=== PATIENT | female | born 1940 | race Caucasian/White ===

== ENCOUNTER → 2017-08-25 | Outpatient (CLI) | payer MEDICARE, MEDICAID ==
[~2017-08-25] MED LIST: AMLODIPINE BESYL5 MG PO; AMLODIPINE5 MG PO; ASPIR-TRIN325 MG PO; ASPIRIN81 M1 PO; ATENOLOL25 MG PO; AUGMENTIN 875875 MG PO; AVPAK AZITHROM250 M1 PO; B12,B-12,B 12500 MC1 PO; BACTRIM DS 8001 TA1 PO; CEFUROXIME AXE250 MG PO; CIPRO500 MG PO; CIPROFLOXACIN500 MG PO; DOK PLUS 50 MG-1 TAB PO; GLIPIZIDE10 M2 PO; GLIPIZIDE5 MG PO; HYDROCODONE BIT1 T11 PO; JANUVIA50 MG PO; LASIX20 MG PO; LEVOFLOXACIN500 MG PO; LISINOPRIL AND1 TA2 PO; LISINOPRIL5 MG PO; LOVASTATIN20 MG PO; LOVASTATIN40 MG PO; MACROBID100 M1 PO; METFORMIN500 MG PO; MIRALAX POWDER17 G1 PO; MIRAPEX PO; MIRAPEX0.125 MG PO; MIRAPEX1 MG PO; NORCO 325 MG-101 TAB PO; OXYCODONE HCL5 MG PO; PREDNISONE10 MG PO; TENORMIN25 MG PO; TRAMADOL50 MG PO; ULTRAM50 MG PO; VICODIN 5/500 505 MG PO; VISION VITAMIN1 EACH PO; ZESTRIL,PRINIVIL5 MG PO; [UNRECOGNIZED DRUG - REMARK]
--- NOTE | ~2017-08-25 | SLPPN ---
[place], [place] MALLET AND DIE CUTTER PROGRESS NOTE NAME: ELINOR VERAS UNIT #: [id number] ROOM: DOCTOR: DARCY SUAZO MD,RUPERTO Speech Language Pathology Treatment Note Page 1 1 of Patient Name: ELINOR VERAS Date: 08/25/2017 10:27 AM : 1940 SOC Date: 08/25/2017 [facility] Provider #: [id number] Treating Clinician: MILY Blake-MALLET AND DIE CUTTER Referring Physician: RUPERTO SUAZO Onset Date Description Code Primary Diagnosis: 08/22/2017 A0000 NO DIAGNOSIS SENT TO THE [facility] INTERFACE Time In: 09:00 AM Time Out: 10:00 AM [employer] Interventions and CPT Codes Consisted of: CPT Code Modifiers Minutes Units MOTION FLUOROSCOPY/SWALLOW 25024 60 1 Total Minutes: 60 Total Timed Minutes: 0 Total Untimed Minutes: 60 Total Units: 1 Total Timed Units: 0 Total Untimed Units: 1 08/25/2017 10:31:36 AM REYNA Blake Date/Time State License #: [id number] CM:[place] 103 IS THERAPY [facility]
--- NOTE | ~2017-08-25 | SLPIE ---
[place], [place] DOPER OPERATOR INITIAL EVALUATION NAME: ELINOR VERAS UNIT #: [id number] ROOM: DOCTOR: RUPERTO MILNER FACP, MD Speech Language Pathology Initial Evaluation Page 1 1 of Patient Name: ELINOR VERAS Date: 08/25/2017 10:26 AM : 1940 SOC Date: 08/25/2017 Provider: [facility] Provider #: [id number] Treating Clinician: MILY Blake-DUNCAN Referring Physician: RUPERTO SUAZO Patient Information Address: [address] [place] [address] Physician: RUPERTO SUAZO Physician #: City, [facility], Zip: [place], [place] [address] Occupation: Unknown # of Approved Visits: 0 Gender: Female Medicaid #: [id number] Resident Services Manager: MICHEAL VERAS Medicare #: [id number] Rehabilitation Information / History Onset Date Code Description Primary Diagnosis: 08/22/2017 A0000 NO DIAGNOSIS SENT TO THE [facility] INTERFACE Subjective Comments: Initial evaluation created to initiate the electronic medical record. Please see [employer] for details. Rehabilitation Information / History Clinical Findings Functional Goals Functional Limitation Reporting Swallowing G8996 - Swallowing functional limitation, current status at therapy episode outset and at reporting intervals Current Status: CJ - At least 20 percent but less than 40 percent impaired, limited or restricted G8997 - Swallowing functional limitation, projected goal status, at therapy episode outset, at reporting intervals, and at discharge or to end reporting Goal Status: CJ - At least 20 percent but less than 40 percent impaired, limited or restricted G8998 - Swallowing functional limitation, discharge status, at discharge from therapy or to end reporting Discharge Status: CJ - At least 20 percent but less than 40 percent impaired, limited or restricted 08/25/2017 10:27:35 AM MILY Blake-DUNCAN Date/Time [place], [place] DOPER OPERATOR INITIAL EVALUATION NAME: ELINOR VERAS UNIT #: [id number] ROOM: DOCTOR: RUPERTO MILNER FACP, MD [facility] License #: [id number] CM:SLPIE 1031 1031 IS THERAPY [facility]
--- NOTE | ~2017-08-25 | SLPPOC ---
[place], [place] FIELD CHECKER PLAN OF CARE NAME: ELINOR VERAS UNIT #: [id number] ROOM: DOCTOR: RUPERTO MILNER FACP, MD Speech Language Pathology Plan of Care Page 1 1 (Initial Evaluation) of Patient Name: ELINOR VERAS Date: 08/25/2017 10:26 AM : 1940 SOC Date: 08/25/2017 [facility]: [facility] Provider #: [id number] Treating Clinician: MILY Blake-FIELD CHECKER Referring Physician: RUPERTO SUAZO Medicare #: [id number] Visits From SOC: Medicaid #: [id number] Onset Date Description Code Primary Diagnosis: 08/22/2017 A0000 NO DIAGNOSIS SENT TO THE [facility] INTERFACE Subjective Comments: Initial evaluation created to initiate the electronic medical record. Please see [employer] for details. Initial Level Goals Functional Limitation Reporting Swallowing G8996 - Swallowing functional limitation, current status at therapy episode outset and at reporting intervals Current Status: CJ - At least 20 percent but less than 40 percent impaired, limited or restricted G8997 - Swallowing functional limitation, projected goal status, at therapy episode outset, at reporting intervals, and at discharge or to end reporting Goal Status: CJ - At least 20 percent but less than 40 percent impaired, limited or restricted G8998 - Swallowing functional limitation, discharge status, at discharge from therapy or to end reporting Discharge Status: CJ - At least 20 percent but less than 40 percent impaired, limited or restricted 08/25/2017 10:27:35 AM RUPERTO SUAZO Date/Time MILY Blake-DUNCAN Date I certify the need for these services furnished under this plan of treatment while under my care. State License #: [id number] CM:SLPPOC 30 30 IS THERAPY [facility]
--- NOTE | ~2017-08-25 | PROC NOTE ---
[place], [place] PROCEDURE NOTE NAME: ELINOR VERAS [facility] #: [id number] UNIT #: [id number] ROOM: DOCTOR: ROBERTGUNNAR BIRTHDATE: [birth year] DOS: 08/25/2017 ORDERING PHYSICIAN: Dr. Buckner. RADIOLOGIST: Dr. Verdugo. BACKGROUND INFORMATION: The patient, a 77-year-old female was seen for modified barium swallow. This test was ordered due to frequent cough, which increases at mealtime. The patient was alert, cooperative and able to provide case history but slow in general in speech and in movement. She reported medical history significant for AK, hypertension, DM, and uterine cancer. She receives a regular diet and nectar thick liquids. Respiratory status was within normal limits. Oral peripheral examination revealed presence of natural teeth with several back teeth missing. Lingual and labial skills were intact in terms of strength and range of motion. Movements were slow in general. Volitional swallow was delayed. Volitional cough was weak. METHODS AND MATERIALS USED FOR THE EXAM: The patient was positioned in the lateral plane and the exam was viewed under fluoroscopy. The patient was presented with a variety of consistencies to assess swallowing skills including applesauce mixed with barium presented in half teaspoon amounts, barium-coated banana, cookie and sandwich given in bite size pieces and nectar thick and thin barium taken by cup. The patient held the cup and swallowed in single and consecutive sip size amounts. ORAL PHASE: The patient achieved adequate labial seal around cup and spoon with no anterior loss. Bolus formation was adequate. Mastication of solids was slow due to oral skills and limited dentition. Oral transit was mild to moderately increased. Piecemeal swallow was also observed with solids. Tongue to palate contact was within normal limits. Tongue retraction was within normal limits. Velar functioning was within normal limits. PHARYNGEAL PHASE: Unremarkable. ESOPHAGEAL PHASE: This phase of the swallow was not formally assessed during this exam. IMPRESSIONS AND RECOMMENDATIONS: Based upon assessment results, this 77-year-old patient presents with a mild to moderate oral dysphagia characterized by slow mastication, piecemeal swallow and delayed oral transit. It is recommended that she receive a soft diet and thin liquids. Safe swallow strategies to implement at mealtime include upright positioning and small bites and sips. Follow up therapy at the assisted is recommended to ensure safety with diet change. Results and recommendations were shared with the patient and she verbalized understanding. A written copy of results and recommendations were provided for education of assisted staff. Thank you very much for this referral. Should you have any questions regarding this patient, please contact the speech pathologist at [phone]. [place], [place] PROCEDURE NOTE NAME: ELINOR VERAS Lou UNIT #: [id number] ROOM: DOCTOR: GUNNAR JONES BIRTHDATE: [birth year] GUNNAR JONES CM:PROCNOTE:PROCEDURE NOTE 1025 2233 GUNNAR JONES
== END | disposition home or self-care (01) ==
LOC: RAD/SH 02:12
DX: R13.10 Dysphagia, unspecified (principal)

== ENCOUNTER 2017-12-20 08:27 | Emergency (ER) | payer MEDICARE ==
[~2017-12-20] VITALS: Wt 68.0 kg
[2017-12-20 08:28] VITALS: BP 115/47
[2017-12-20] MEDS ORDERED: ASPIRIN CHEWABL81 MG PO (08:45)
[2017-12-20] MEDS ORDERED: SINEMET 10-1001 EACH PO (08:46)
[2017-12-20] MEDS ORDERED: CLARITIN10 MG PO (08:46)
[2017-12-20] MEDS ORDERED: CYMBALTA30 MG PO (08:47)
[2017-12-20] MEDS ORDERED: [UNRECOGNIZED DRUG - OTHER] T (08:47)
[2017-12-20] MEDS ORDERED: Hydralazine Hyd25 MG PO (08:48)
[2017-12-20] MEDS ORDERED: LANTUS SOL100 UNIT/1 SC (08:49)
[2017-12-20] MEDS ORDERED: LOSARTAN POTASS50 M1 PO (08:50)
[2017-12-20] MEDS ORDERED: MOM30 M1 PO (08:51)
[2017-12-20] MEDS ORDERED: MIRALAX POWDER17 G1 PO (08:51)
[2017-12-20] MEDS ORDERED: NOVOLOG100 UNIT/1 SQ (08:52)
[2017-12-20] MEDS ORDERED: NYSTATIN1 EAC5 MC (08:52)
[2017-12-20] MEDS ORDERED: PLAVIX75 M1 PO (08:53)
[2017-12-20] MEDS ORDERED: Percocet 325 MG1 TAB PO (08:53)
[2017-12-20] MEDS ORDERED: ROCALTROL0.5 MC1 PO (08:54)
[2017-12-20] MEDS ORDERED: PRAVACHOL40 MG PO (08:54)
[2017-12-20] MEDS ORDERED: PRESERVISION A1 EACH PO (08:54)
[2017-12-20] MEDS ORDERED: TRICOR145 M1 PO (08:55)
[2017-12-20] MEDS ORDERED: SELSUN BLUE MO207 ML T (08:55)
[2017-12-20] MEDS ORDERED: TYLENOL325 M3 PO (08:56)
[2017-12-20] MEDS ORDERED: VITAMIN D5000 UNI1 PO (08:57)
== END 2017-12-20 10:05 | disposition home or self-care (01) ==
LOC: ED 08:27
DX: S01.01XA Laceration without foreign body of scalp, initial encounter (principal); E11.22 Type 2 diabetes mellitus with diabetic chronic kidney disease; I12.9 Hypertensive chronic kidney disease with stage 1 through stage 4 chronic kidney disease, or unspecified chronic kidney disease; N18.4 Chronic kidney disease, stage 4 (severe); N17.9 Acute kidney failure, unspecified; Z88.1 Allergy status to other antibiotic agents; Z91.040 Latex allergy status; Z88.8 Allergy status to other drugs, medicaments and biological substances; Z79.82 Long term (current) use of aspirin; Z79.4 Long term (current) use of insulin; Z79.899 Other long term (current) drug therapy; Z90.710 Acquired absence of both cervix and uterus; Z90.89 Acquired absence of other organs; W19.XXXA Unspecified fall, initial encounter; Y93.89 Activity, other specified; Y92.89 Other specified places as the place of occurrence of the external cause; Y99.8 Other external cause status

== ENCOUNTER 2018-02-26 18:15 | Emergency (ER) | payer MEDICARE ==
[~2018-02-26] VITALS: Ht 157.4 cm; Wt 113.4 kg
[~2018-02-26 18:15] MED LIST changes: +ASPIRIN CHEWABL81 MG PO; +CLARITIN10 MG PO; +CYMBALTA30 MG PO; +Hydralazine Hyd25 MG PO; +LANTUS SOL100 UNIT/1 SC; +LOSARTAN POTASS50 M1 PO; +MOM30 M1 PO; +NOVOLOG100 UNIT/1 SQ; +NYSTATIN1 EAC5 MC; +PLAVIX75 M1 PO; +PRAVACHOL40 MG PO; +PRESERVISION A1 EACH PO; +Percocet 325 MG1 TAB PO; +ROCALTROL0.5 MC1 PO; +SELSUN BLUE MO207 ML T; +SINEMET 10-1001 EACH PO; +TRICOR145 M1 PO; +TYLENOL325 M3 PO; +VITAMIN D5000 UNI1 PO; +[UNRECOGNIZED DRUG - OTHER] T
[2018-02-26 19:35] LABS: ALBUMIN 2.9 gm/dl (3.1-4.5); CREATININE 1.87 mg/dL (0.55-1.02); TOTAL PROTEIN 7.1 gm/dL (6.4-8.2)
[2018-02-26 20:07] LABS: BILIRUBIN NEGATIVE (NEGATIVE); BLOOD TRACE-INTACT (NEGATIVE); CLARITY SL CLOUDY (CLEAR); COLOR YELLOW (YELLOW); GLUCOSE TRACE (NEGATIVE); KETONE NEGATIVE (NEGATIVE); LEUKO ESTERASE 2+ (NEGATIVE); NITRITE NEGATIVE (NEGATIVE); SPECIFIC GRAVITY >= 1.030 (1.005-1.030); UROBILINOGEN 0.2 E.U./dl (0.2-1.0)
[2018-02-26 20:10] LABS: HEMATOCRIT 32.5 % (37.0-47.0); HEMOGLOBIN 10.6 g/dl (12.0-16.0); MEAN CELL VOLUME 98.8 fl (81.0-99.0); MEAN CORPUSCULAR HGB 32.2 pg (27.0-31.0); MEAN CORPUSCULAR HGB CONC 32.6 g/dl (33.0-37.0); MEAN PLATELET VOLUME 10.2 fl (9.6-12.3); PLATELET COUNT AUTOMATED 218 10*3/uL (130-400); RED BLOOD COUNT 3.29 10*6/uL (4.10-5.10); RED CELL DISTRI WIDTH 13.1 % (0-14.5); WHITE BLOOD COUNT 3.9 10*3/uL (4.8-10.8)
[2018-02-26 20:13] LABS: BACTERIA 4+; WBC TNTC wbc/hpf (0-5)
[2018-02-26 21:32] LABS: BASOPHILS 1 % (0-1); PLATELET SUFFICIENCY NORMAL (NORMAL); POLYCHROMASIA SLIGHT; TOTAL CELLS COUNTED 100 #CELLS
[2018-02-26] MEDS ORDERED: MACRODANTIN100 M1 PO (21:48)
[2018-02-26 22:34] VITALS: BP 147/50
== END 2018-02-26 22:51 | disposition home or self-care (01) ==
LOC: ED 18:15
PROVIDERS: Nurse Practitioner Family
DX: S63.501A Unspecified sprain of right wrist, initial encounter (principal); N39.0 Urinary tract infection, site not specified; E11.22 Type 2 diabetes mellitus with diabetic chronic kidney disease; I12.9 Hypertensive chronic kidney disease with stage 1 through stage 4 chronic kidney disease, or unspecified chronic kidney disease; N18.4 Chronic kidney disease, stage 4 (severe); E78.5 Hyperlipidemia, unspecified; Z90.710 Acquired absence of both cervix and uterus; W18.2XXA Fall in (into) shower or empty bathtub, initial encounter; Y93.89 Activity, other specified; Y92.89 Other specified places as the place of occurrence of the external cause; Y99.8 Other external cause status

== ENCOUNTER 2018-03-06 17:14 | Inpatient (IN) | payer MEDICARE ==
[~2018-03-06] VITALS: Ht 162.5 cm; Wt 108.5 kg
--- NOTE | ~2018-03-06 | EKG ---
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
[~2018-03-06 17:14] MED LIST changes: +MACRODANTIN100 M1 PO; +NYSTATIN CREAM15 GM T; +PURE & GENTLE 115 ML OP
[2018-03-06 17:16] VITALS: BP 183/57
[2018-03-06 17:36] LABS: BILIRUBIN NEGATIVE (NEGATIVE); BLOOD TRACE-INTACT (NEGATIVE); CLARITY CLEAR (CLEAR); COLOR YELLOW (YELLOW); GLUCOSE NEGATIVE (NEGATIVE); KETONE NEGATIVE (NEGATIVE); LEUKO ESTERASE 1+ (NEGATIVE); NITRITE NEGATIVE (NEGATIVE); SPECIFIC GRAVITY 1.025 (1.005-1.030); UROBILINOGEN 0.2 E.U./dl (0.2-1.0)
[2018-03-06 17:58] LABS: BACTERIA 2+; CALCIUM OXALATE CRYSTALS 1+; EPITHELIAL CELLS 21-30; RBC 0-2 rbc/hpf (0-2)
[2018-03-06 18:06] LABS: BASO % 0.1 % (0.0-1.0); EOS % 0.2 % (1.0-4.0); HEMATOCRIT 31.5 % (37.0-47.0); HEMOGLOBIN 10.2 g/dl (12.0-16.0); LYMPH # 1.3 10*3/uL (1.3-4.4); LYMPH % 13.1 % (27.0-41.0); MEAN CELL VOLUME 97.2 fl (81.0-99.0); MEAN CORPUSCULAR HGB 31.5 pg (27.0-31.0); MEAN CORPUSCULAR HGB CONC 32.4 g/dl (33.0-37.0); MEAN PLATELET VOLUME 9.6 fl (9.6-12.3); MONO # 0.8 10*3/uL (0.1-1.0); MONO % 8.1 % (3.0-9.0); NEUT # 7.9 10*3/uL (2.3-7.9); NEUT % 77.8 % (47.0-73.0); PLATELET COUNT AUTOMATED 229 10*3/uL (130-400); RED BLOOD COUNT 3.24 10*6/uL (4.10-5.10); RED CELL DISTRI WIDTH 13.1 % (0-14.5); WHITE BLOOD COUNT 10.1 10*3/uL (4.8-10.8)
[2018-03-06 18:21] LABS: ALBUMIN 2.6 gm/dl (3.1-4.5); ALKALINE PHOSPHATASE 108 U/L (45-117); BUN 44 mg/dl (7-24); CHLORIDE 110 mmol/L (98-107); CREATININE 1.89 mg/dL (0.55-1.02); LIPASE 188 U/L (73-393); POTASSIUM 4.7 mmol/L (3.5-5.1); SGOT/AST 15 IU/L (3-35); SGPT/ALT 9 U/L (12-78); SODIUM 138 mmol/L (136-145); TOTAL PROTEIN 7.3 gm/dL (6.4-8.2)
[2018-03-06 18:22] LABS: TROPONIN I < 0.015 ng/ml (<0.045)
[2018-03-06 19:25] VITALS: BP 172/60
[2018-03-06] MEDS ORDERED: [UNRECOGNIZED DRUG - OTHER] T (19:45)
[2018-03-06] MEDS ORDERED: GEMFIBROZIL600 MG PO (19:46)
[2018-03-06] MEDS ORDERED: DOXYCYCLINE100 M3 PO (19:46)
[2018-03-06] MEDS ORDERED: IMODIUM A-D2 M2 PO (19:48)
[2018-03-06 20:00] VITALS: BP 151/55
[2018-03-07] VITALS: BP 107/68; BP 159/65
[2018-03-07 06:37] LABS: HEMATOCRIT 32.3 % (37.0-47.0); HEMOGLOBIN 10.2 g/dl (12.0-16.0); MEAN CELL VOLUME 98.2 fl (81.0-99.0); MEAN CORPUSCULAR HGB CONC 31.6 g/dl (33.0-37.0); MEAN PLATELET VOLUME 9.7 fl (9.6-12.3); PLATELET COUNT AUTOMATED 213 10*3/uL (130-400); RED BLOOD COUNT 3.29 10*6/uL (4.10-5.10); RED CELL DISTRI WIDTH 12.8 % (0-14.5); WHITE BLOOD COUNT 8.3 10*3/uL (4.8-10.8)
[2018-03-07 07:07] LABS: ALBUMIN 2.2 gm/dl (3.1-4.5); CREATININE 1.53 mg/dL (0.55-1.02); POTASSIUM 4.8 mmol/L (3.5-5.1)
[2018-03-07 07:33] LABS: BASOPHILS 1 % (0-1); PLATELET SUFFICIENCY NORMAL (NORMAL); POLYCHROMASIA SLIGHT; TOTAL CELLS COUNTED 100 #CELLS
[2018-03-07 08:00] VITALS: BP 136/84
[2018-03-07 12:00] VITALS: BP 172/80
[2018-03-07 16:00] VITALS: BP 140/84; BP 174/82
[2018-03-07 20:00] VITALS: BP 152/66
[2018-03-08] VITALS: BP 160/80
[2018-03-08 08:00] VITALS: BP 156/82
[2018-03-08 12:00] VITALS: BP 143/64
[2018-03-08] MEDS ORDERED: Ipratropium Brom3 ML NEB (15:04)
[2018-03-08] MEDS ORDERED: DOXYCYCLINE100 M3 PO (15:04)
[2018-03-08] MEDS ORDERED: MONUROL3 G1 PO (15:04)
[2018-03-08] MEDS ORDERED: Percocet 325 MG1 TAB PO (15:04)
[2018-03-08 16:00] VITALS: BP 197/83
== END 2018-03-08 17:07 | DRG 871 ==
LOC: ED 17:14 → EDHOLD 19:02 → 5E 19:26
PROVIDERS: Family Medicine; Internal Medicine
DX: A41.9 Sepsis, unspecified organism (principal); G93.41 Metabolic encephalopathy; E43 Unspecified severe protein-calorie malnutrition; J15.6 Pneumonia due to other Gram-negative bacteria; I13.0 Hypertensive heart and chronic kidney disease with heart failure and stage 1 through stage 4 chronic kidney disease, or unspecified chronic kidney disease; I50.32 Chronic diastolic (congestive) heart failure; N30.01 Acute cystitis with hematuria; Z68.41 Body mass index [BMI] 40.0-44.9, adult; D64.9 Anemia, unspecified; R80.9 Proteinuria, unspecified; M50.30 Other cervical disc degeneration, unspecified cervical region; N20.0 Calculus of kidney; K80.20 Calculus of gallbladder without cholecystitis without obstruction; B96.20 Unspecified Escherichia coli [E. coli] as the cause of diseases classified elsewhere; K57.30 Diverticulosis of large intestine without perforation or abscess without bleeding; K76.0 Fatty (change of) liver, not elsewhere classified; R16.0 Hepatomegaly, not elsewhere classified; K44.9 Diaphragmatic hernia without obstruction or gangrene; E11.22 Type 2 diabetes mellitus with diabetic chronic kidney disease; Z96.653 Presence of artificial knee joint, bilateral; E78.5 Hyperlipidemia, unspecified; Z88.1 Allergy status to other antibiotic agents; Z88.8 Allergy status to other drugs, medicaments and biological substances; Z91.040 Latex allergy status; Z79.82 Long term (current) use of aspirin; Z79.899 Other long term (current) drug therapy; Z87.440 Personal history of urinary (tract) infections; Z90.710 Acquired absence of both cervix and uterus; Z83.3 Family history of diabetes mellitus; Z80.52 Family history of malignant neoplasm of bladder

== ENCOUNTER 2018-03-29 09:21 | Emergency (ER) | payer MEDICARE ==
[~2018-03-29] VITALS: Wt 108.9 kg
[~2018-03-29 09:21] MED LIST changes: +DOXYCYCLINE100 M3 PO; +GEMFIBROZIL600 MG PO; +IMODIUM A-D2 M2 PO; +Ipratropium Brom3 ML NEB; +MONUROL3 G1 PO; +[UNRECOGNIZED DRUG - OTHER] T
[2018-03-29 10:40] VITALS: BP 178/78
== END 2018-03-29 11:31 ==
LOC: ED 09:21
DX: S63.501A Unspecified sprain of right wrist, initial encounter (principal); S00.83XA Contusion of other part of head, initial encounter; Z88.1 Allergy status to other antibiotic agents; Z88.6 Allergy status to analgesic agent; Z91.040 Latex allergy status; Z79.899 Other long term (current) drug therapy; Z79.82 Long term (current) use of aspirin; Z87.891 Personal history of nicotine dependence; W07.XXXA Fall from chair, initial encounter; Y93.89 Activity, other specified; Y92.89 Other specified places as the place of occurrence of the external cause; Y99.8 Other external cause status

== ENCOUNTER 2018-04-20 19:47 | Emergency (ER) | payer MEDICARE ==
[~2018-04-20] VITALS: Ht 162.5 cm; Wt 107.0 kg
[2018-04-20] MEDS ORDERED: CLINDAMYCIN HC300 MG PO (22:13)
[2018-04-20 22:34] VITALS: BP 130/47
== END 2018-04-20 23:09 | disposition other institution (70) ==
LOC: ED 19:47
DX: M79.81 Nontraumatic hematoma of soft tissue (principal); L08.9 Local infection of the skin and subcutaneous tissue, unspecified; Z88.1 Allergy status to other antibiotic agents; Z88.6 Allergy status to analgesic agent; Z91.040 Latex allergy status; Z79.2 Long term (current) use of antibiotics; Z79.899 Other long term (current) drug therapy; Z79.82 Long term (current) use of aspirin; Z79.4 Long term (current) use of insulin; Z90.710 Acquired absence of both cervix and uterus

== ENCOUNTER → 2018-05-07 | Outpatient (CLI) | payer MEDICARE ==
[~2018-05-07] MED LIST changes: +CLINDAMYCIN HC300 MG PO
== END | disposition home or self-care (01) ==
LOC: WOUNDCARE 03:08
DX: S00.03XA Contusion of scalp, initial encounter (principal); S60.411A Abrasion of left index finger, initial encounter; E11.22 Type 2 diabetes mellitus with diabetic chronic kidney disease; I13.0 Hypertensive heart and chronic kidney disease with heart failure and stage 1 through stage 4 chronic kidney disease, or unspecified chronic kidney disease; N18.9 Chronic kidney disease, unspecified; I50.30 Unspecified diastolic (congestive) heart failure; E78.5 Hyperlipidemia, unspecified; G20 Parkinson's disease; G89.29 Other chronic pain; F03.90 Unspecified dementia, unspecified severity, without behavioral disturbance, psychotic disturbance, mood disturbance, and anxiety; Z79.4 Long term (current) use of insulin; Z96.653 Presence of artificial knee joint, bilateral; Z90.710 Acquired absence of both cervix and uterus; Z79.01 Long term (current) use of anticoagulants; Z87.891 Personal history of nicotine dependence; W01.0XXA Fall on same level from slipping, tripping and stumbling without subsequent striking against object, initial encounter; Y93.89 Activity, other specified; Y92.89 Other specified places as the place of occurrence of the external cause; Y99.8 Other external cause status

== ENCOUNTER 2018-05-16 19:49 | Emergency (ER) | payer MEDICARE ==
[~2018-05-16] VITALS: Ht 162.5 cm; Wt 99.8 kg
[2018-05-16 19:51] VITALS: BP 170/51
== END 2018-05-16 22:42 ==
LOC: ED 19:49
DX: S00.03XA Contusion of scalp, initial encounter (principal); E11.22 Type 2 diabetes mellitus with diabetic chronic kidney disease; I13.0 Hypertensive heart and chronic kidney disease with heart failure and stage 1 through stage 4 chronic kidney disease, or unspecified chronic kidney disease; N18.4 Chronic kidney disease, stage 4 (severe); I50.30 Unspecified diastolic (congestive) heart failure; E11.40 Type 2 diabetes mellitus with diabetic neuropathy, unspecified; E11.51 Type 2 diabetes mellitus with diabetic peripheral angiopathy without gangrene; G89.29 Other chronic pain; E78.5 Hyperlipidemia, unspecified; E66.9 Obesity, unspecified; Z88.1 Allergy status to other antibiotic agents; Z88.8 Allergy status to other drugs, medicaments and biological substances; Z91.040 Latex allergy status; Z79.2 Long term (current) use of antibiotics; Z79.899 Other long term (current) drug therapy; Z79.82 Long term (current) use of aspirin; Z79.4 Long term (current) use of insulin; Z90.710 Acquired absence of both cervix and uterus; W05.0XXA Fall from non-moving wheelchair, initial encounter; Y93.89 Activity, other specified; Y92.129 Unspecified place in nursing home as the place of occurrence of the external cause; Y99.8 Other external cause status

== ENCOUNTER 2018-09-05 19:14 | Emergency (ER) | payer MEDICARE ==
[~2018-09-05] VITALS: Ht 162.5 cm; Wt 104.3 kg
[2018-09-05 19:18] VITALS: BP 153/60
== END 2018-09-05 21:27 | disposition other institution (70) ==
LOC: ED 19:14
DX: S01.111A Laceration without foreign body of right eyelid and periocular area, initial encounter (principal); Z87.891 Personal history of nicotine dependence; Z79.899 Other long term (current) drug therapy; Z79.82 Long term (current) use of aspirin; Z88.1 Allergy status to other antibiotic agents; Z88.6 Allergy status to analgesic agent; Z91.040 Latex allergy status; W05.0XXA Fall from non-moving wheelchair, initial encounter; Y93.89 Activity, other specified; Y92.128 Other place in nursing home as the place of occurrence of the external cause; Y99.8 Other external cause status

== ENCOUNTER 2018-11-22 21:32 | Emergency (ER) | payer MEDICARE ==
[~2018-11-22] VITALS: Wt 103.0 kg
[2018-11-22 21:35] VITALS: BP 145/58
== END 2018-11-22 22:39 | disposition home or self-care (01) ==
LOC: ED 21:32
DX: H53.143 Visual discomfort, bilateral (principal); G20 Parkinson's disease; G89.29 Other chronic pain; I13.0 Hypertensive heart and chronic kidney disease with heart failure and stage 1 through stage 4 chronic kidney disease, or unspecified chronic kidney disease; E11.22 Type 2 diabetes mellitus with diabetic chronic kidney disease; N18.4 Chronic kidney disease, stage 4 (severe); I50.30 Unspecified diastolic (congestive) heart failure; E78.5 Hyperlipidemia, unspecified; Z87.891 Personal history of nicotine dependence; Z86.69 Personal history of other diseases of the nervous system and sense organs; Z88.1 Allergy status to other antibiotic agents; Z91.040 Latex allergy status; Z79.2 Long term (current) use of antibiotics; Z79.899 Other long term (current) drug therapy; Z79.82 Long term (current) use of aspirin; Z79.4 Long term (current) use of insulin

== ENCOUNTER 2018-11-25 21:40 | Emergency (ER) | payer MEDICARE ==
[~2018-11-25] VITALS: Ht 157.4 cm; Wt 102.6 kg
[2018-11-25 22:41] LABS: BASO % 0.5 % (0.0-1.0); EOS # 0.1 10*3/uL (0.0-0.4); EOS % 2.4 % (1.0-4.0); HEMATOCRIT 31.5 % (37.0-47.0); HEMOGLOBIN 10.2 g/dl (12.0-16.0); LYMPH # 1.1 10*3/uL (1.3-4.4); LYMPH % 19.3 % (27.0-41.0); MEAN CELL VOLUME 101.3 fl (81.0-99.0); MEAN CORPUSCULAR HGB 32.8 pg (27.0-31.0); MEAN CORPUSCULAR HGB CONC 32.4 g/dl (33.0-37.0); MEAN PLATELET VOLUME 9.2 fl (9.6-12.3); MONO # 0.6 10*3/uL (0.1-1.0); MONO % 10.6 % (3.0-9.0); NEUT # 3.6 10*3/uL (2.3-7.9); NEUT % 66.3 % (47.0-73.0); PLATELET COUNT AUTOMATED 218 10*3/uL (130-400); RED BLOOD COUNT 3.11 10*6/uL (4.10-5.10); RED CELL DISTRI WIDTH 13.4 % (0-14.5); WHITE BLOOD COUNT 5.5 10*3/uL (4.8-10.8)
[2018-11-25 22:41] LABS: BILIRUBIN NEGATIVE (NEGATIVE); BLOOD NEGATIVE (NEGATIVE); CLARITY SL CLOUDY (CLEAR); COLOR YELLOW (YELLOW); GLUCOSE NEGATIVE (NEGATIVE); KETONE NEGATIVE (NEGATIVE); LEUKO ESTERASE 3+ (NEGATIVE); NITRITE POSITIVE (NEGATIVE); SPECIFIC GRAVITY <= 1.005 (1.005-1.030); UROBILINOGEN 0.2 E.U./dl (0.2-1.0)
[2018-11-25 22:55] LABS: ALBUMIN 3.1 gm/dl (3.1-4.5); TOTAL PROTEIN 6.6 gm/dL (6.4-8.2)
[2018-11-25 23:18] LABS: BACTERIA 3+; WBC TNTC wbc/hpf (0-5)
[2018-11-26] MEDS ORDERED: MACROBID100 M1 PO (01:38)
[2018-11-26 02:20] VITALS: BP 165/72
== END 2018-11-26 02:15 ==
LOC: ED 21:40
PROVIDERS: Nurse Practitioner Family
DX: N39.0 Urinary tract infection, site not specified (principal); E11.22 Type 2 diabetes mellitus with diabetic chronic kidney disease; I13.0 Hypertensive heart and chronic kidney disease with heart failure and stage 1 through stage 4 chronic kidney disease, or unspecified chronic kidney disease; N18.4 Chronic kidney disease, stage 4 (severe); I50.30 Unspecified diastolic (congestive) heart failure; Z88.1 Allergy status to other antibiotic agents; Z88.6 Allergy status to analgesic agent; Z91.040 Latex allergy status; Z79.899 Other long term (current) drug therapy; Z79.82 Long term (current) use of aspirin; Z79.4 Long term (current) use of insulin

== ENCOUNTER 2019-02-03 13:44 | Emergency (ER) | payer MEDICARE ==
[~2019-02-03] VITALS: Ht 165.1 cm; Wt 90.7 kg
[2019-02-03 14:30] LABS: BASO % 0.3 % (0.0-1.0); EOS # 0.1 10*3/uL (0.0-0.4); EOS % 0.8 % (1.0-4.0); HEMATOCRIT 31.7 % (37.0-47.0); HEMOGLOBIN 9.8 g/dl (12.0-16.0); LYMPH # 0.8 10*3/uL (1.3-4.4); LYMPH % 7.2 % (27.0-41.0); MEAN CORPUSCULAR HGB 31.2 pg (27.0-31.0); MEAN CORPUSCULAR HGB CONC 30.9 g/dl (33.0-37.0); MEAN PLATELET VOLUME 8.9 fl (9.6-12.3); MONO # 0.9 10*3/uL (0.1-1.0); MONO % 8.7 % (3.0-9.0); NEUT # 8.9 10*3/uL (2.3-7.9); NEUT % 82.4 % (47.0-73.0); PLATELET COUNT AUTOMATED 273 10*3/uL (130-400); RED BLOOD COUNT 3.14 10*6/uL (4.10-5.10); RED CELL DISTRI WIDTH 12.4 % (0-14.5); WHITE BLOOD COUNT 10.8 10*3/uL (4.8-10.8)
[2019-02-03 14:50] LABS: ALBUMIN 2.7 gm/dl (3.1-4.5); ALKALINE PHOSPHATASE 122 U/L (45-117); BUN 53 mg/dl (7-24); CHLORIDE 105 mmol/L (98-107); CREATININE 1.76 mg/dL (0.55-1.02); POTASSIUM 4.2 mmol/L (3.5-5.1); SGOT/AST 9 IU/L (3-35); SODIUM 138 mmol/L (136-145); TOTAL PROTEIN 7.3 gm/dL (6.4-8.2)
[2019-02-03 14:51] LABS: SGPT/ALT < 6 U/L (12-78)
[2019-02-03 15:06] LABS: BILIRUBIN NEGATIVE (NEGATIVE); BLOOD NEGATIVE (NEGATIVE); CLARITY SL CLOUDY (CLEAR); COLOR YELLOW (YELLOW); GLUCOSE NEGATIVE (NEGATIVE); KETONE NEGATIVE (NEGATIVE); LEUKO ESTERASE 2+ (NEGATIVE); NITRITE POSITIVE (NEGATIVE); SPECIFIC GRAVITY 1.025 (1.005-1.030); UROBILINOGEN 0.2 E.U./dl (0.2-1.0)
[2019-02-03 15:13] LABS: BACTERIA 4+; EPITHELIAL CELLS 0-2; MUCOUS TRACE; RBC 0-2 rbc/hpf (0-2); WBC 31-40 wbc/hpf (0-5)
[2019-02-03] MEDS ORDERED: SEPTDS PO (17:05)
[2019-02-03 17:25] VITALS: BP 138/58
== END 2019-02-03 17:30 | disposition home or self-care (01) ==
LOC: ED 13:44
PROVIDERS: Emergency Medicine
DX: N39.0 Urinary tract infection, site not specified (principal); G30.9 Alzheimer's disease, unspecified; G89.29 Other chronic pain; E78.5 Hyperlipidemia, unspecified; E11.22 Type 2 diabetes mellitus with diabetic chronic kidney disease; I13.0 Hypertensive heart and chronic kidney disease with heart failure and stage 1 through stage 4 chronic kidney disease, or unspecified chronic kidney disease; N18.4 Chronic kidney disease, stage 4 (severe); I50.30 Unspecified diastolic (congestive) heart failure; M81.0 Age-related osteoporosis without current pathological fracture; E66.9 Obesity, unspecified; Z88.1 Allergy status to other antibiotic agents; Z88.8 Allergy status to other drugs, medicaments and biological substances; Z91.040 Latex allergy status; Z79.2 Long term (current) use of antibiotics; Z79.899 Other long term (current) drug therapy; Z79.82 Long term (current) use of aspirin; Z79.4 Long term (current) use of insulin; Z87.442 Personal history of urinary calculi; Z87.891 Personal history of nicotine dependence

== ENCOUNTER 2019-03-25 13:08 | Inpatient (IN) | payer MEDICARE ==
[~2019-03-25] VITALS: Ht 162.5 cm; Wt 92.6 kg
[~2019-03-25 13:08] MED LIST changes: +POTASSIUM CHLO20 ME3 PO; +SEPTDS PO
[2019-03-25 14:17] LABS: BASO % 0.5 % (0.0-1.0); EOS # 0.1 10*3/uL (0.0-0.4); EOS % 1.8 % (1.0-4.0); HEMATOCRIT 35.4 % (37.0-47.0); HEMOGLOBIN 10.8 g/dl (12.0-16.0); LYMPH # 0.7 10*3/uL (1.3-4.4); LYMPH % 10.7 % (27.0-41.0); MEAN CORPUSCULAR HGB 31.1 pg (27.0-31.0); MEAN CORPUSCULAR HGB CONC 30.5 g/dl (33.0-37.0); MEAN PLATELET VOLUME 9.4 fl (9.6-12.3); MONO # 0.5 10*3/uL (0.1-1.0); MONO % 7.5 % (3.0-9.0); NEUT % 78.9 % (47.0-73.0); PLATELET COUNT AUTOMATED 265 10*3/uL (130-400); RED BLOOD COUNT 3.47 10*6/uL (4.10-5.10); RED CELL DISTRI WIDTH 13.2 % (0-14.5); WHITE BLOOD COUNT 6.3 10*3/uL (4.8-10.8)
[2019-03-25 14:28] LABS: ACT PARTIAL THROMBO TIME 27.7 SECONDS (20.0-32.1); INTERNATIONAL NORM RATIO 0.9 (2.0-3.5)
[2019-03-25 14:29] VITALS: BP 141/50
[2019-03-25 14:50] LABS: ALBUMIN 3.3 gm/dl (3.1-4.5); ALKALINE PHOSPHATASE 120 U/L (45-117); BUN 47 mg/dl (7-24); CHLORIDE 106 mmol/L (98-107); CREATININE 1.66 mg/dL (0.55-1.02); LIPASE 158 U/L (73-393); POTASSIUM 4.3 mmol/L (3.5-5.1); SGOT/AST 9 IU/L (3-35); SODIUM 141 mmol/L (136-145); TOTAL PROTEIN 7.2 gm/dL (6.4-8.2)
[2019-03-25 14:56] LABS: SGPT/ALT < 6 U/L (12-78); TROPONIN I < 0.015 ng/ml (<0.045)
[2019-03-25 16:48] VITALS: BP 148/61
[2019-03-25 18:42] VITALS: BP 155/54
[2019-03-25 19:30] VITALS: BP 155/84
--- NOTE | 2019-03-25 19:30 | NUR ---
A 79, admitted to EDHOLD, under the services of GIOVANNA Romero DO with a diagnosis of ASPIRATION, PNEUMONITIS. Chief complaint is SOB. Patient arrived via bed from ER. Monitor applied. Initial assessment completed. Vital signs taken and recorded. GIOVANNA ROMERO DO notified of admission to the unit. Orders received. See assessment for past medical history, medications and allergies. Patient and/or family oriented to unit.PT CURRENTLY IN ED HOLD AWAITING A BED TO MS FLOOR. visitation policy reviewed. Clothing/patient valuable form completed. EMEKA BOSTON
[2019-03-25] MEDS ORDERED: SINEMET 25-1001 EACH PO ×2 (19:57→19:58)
[2019-03-25] MEDS ORDERED: VITAMIN B-121000 MC2 PO (19:58)
[2019-03-25] MEDS ORDERED: CYMBALTA60 MG PO (19:59)
[2019-03-25] MEDS ORDERED: Ipratropium Brom3 ML INH (20:00)
[2019-03-25] MEDS ORDERED: [UNRECOGNIZED DRUG - OTHER] T (20:00)
[2019-03-25] MEDS ORDERED: FEROSUL325 MG PO (20:01)
[2019-03-25] MEDS ORDERED: HYDR25T PO (20:03)
[2019-03-25] MEDS ORDERED: NYSTATIN1 EAC3 T (20:06)
[2019-03-25] MEDS ORDERED: PRESERVISION A1 EAC1 PO (20:08)
[2019-03-25] MEDS ORDERED: VITAMIN D5000 UNIT PO (20:09)
[2019-03-25] MEDS ORDERED: ZOFRAN4 MG PO (20:10)
[2019-03-25] MEDS ORDERED: MIRALAX17 GM PO (20:11)
[2019-03-25 20:14] VITALS: BP 167/89
[2019-03-26 00:21] VITALS: BP 162/78
[2019-03-26 03:00] VITALS: BP 150/60
--- NOTE | 2019-03-26 03:23 | NUR ---
PATIENT IS RESTING AT THIS TIME. NO DISTRESS NOTED.
[2019-03-26 06:06] VITALS: BP 158/62
--- NOTE | 2019-03-26 06:08 | NUR ---
COMPLETE BED CHANGE FOR THE PATIENT. PATIENT TOLERATED WELL. VITALS STABLE
--- NOTE | 2019-03-26 06:55 | NUR ---
Time: 654 A 79 year old female admitted to 5E under services of GIOVANNA ROMERO DO. Pt. arrived via from ED HOLD ER. Chief complaint: .SHORTNESS OF BREATH. PT TRANSFERRRED VIA BED TO ROOM 509. EMEKA BOSTON
--- NOTE | 2019-03-26 07:34 | NUR ---
ELINOR VERAS Lou [id number] Please refer to the physician's history and physical for past medical history, comorbid conditions, and allergies. Diagnosis: ASPIRATION PNEUMONITIS Lai Score: 17,AT RISK WOUND DESCRIPTIONS: Patient has red blanchable area noted to sacrum at time of assessment. No open areas noted at time of assessment to sacrum. Bilateral heels are red and blanchable at time of assessment. No open areas noted at time of assessment to bilateral heels. Red satelitte musty areas noted to bilateral breasts, and bilateral groins at time of assessment. No drainage noted at time of assessment. Surface the patient is resting on: Isoflex SKIN PREVENTION RECOMMENDATION: 1. Pressure redistribution support surface as appropriate 2. Elevate heels 3. Remove boots/TEDS every shift and reapply 4. Head of bed 30 degrees as tolerated 5. Assess nutrition and hydration 6. Manage moisture 7. Avoid the use of containment devices while in bed 8. Use absorptive products on surfaces limit layers of linens on bed 9. Turn and reposition every 1-2 hours in bed and every 1 hour in chair as tolerated 10. Weight shifts every 15 minutes while up in chair 11. Offloading with pillows or device to keep heels elevated off bed 12. Monitor skin at least every shift 13. Inspect under medical devices twice a day WOUND TREATMENT RECOMMENDATIONS: Cleanse bilateral breasts and groins with soap and water and apply nystatin powder every 8 hours. Cleanse sacrum with soap and water and apply hydraguard every shift and prn for soiling for prevention. Heel raiser pro boots to bilateral feet while in bed. Wheelchair cushion when oob.
--- NOTE | 2019-03-26 09:00 | NUR ---
case management visits with patient, she is skilled nursing care at [facility] and will return when medically stable, case management will follow
[2019-03-26 09:13] LABS: BASO % 0.2 % (0.0-1.0); HEMATOCRIT 37.9 % (37.0-47.0); HEMOGLOBIN 11.7 g/dl (12.0-16.0); LYMPH # 0.8 10*3/uL (1.3-4.4); LYMPH % 9.1 % (27.0-41.0); MEAN CELL VOLUME 100.8 fl (81.0-99.0); MEAN CORPUSCULAR HGB 31.1 pg (27.0-31.0); MEAN CORPUSCULAR HGB CONC 30.9 g/dl (33.0-37.0); MEAN PLATELET VOLUME 9.4 fl (9.6-12.3); MONO # 0.3 10*3/uL (0.1-1.0); MONO % 3.5 % (3.0-9.0); NEUT # 7.6 10*3/uL (2.3-7.9); NEUT % 86.4 % (47.0-73.0); PLATELET COUNT AUTOMATED 306 10*3/uL (130-400); RED BLOOD COUNT 3.76 10*6/uL (4.10-5.10); WHITE BLOOD COUNT 8.8 10*3/uL (4.8-10.8)
[2019-03-26 09:34] LABS: ALBUMIN 3.4 gm/dl (3.1-4.5); CREATININE 1.56 mg/dL (0.55-1.02); PHOSPHOROUS 3.3 mg/dL (2.5-4.9); POTASSIUM 4.2 mmol/L (3.5-5.1)
[2019-03-26 09:35] LABS: TOTAL PROTEIN 7.7 gm/dL (6.4-8.2)
--- NOTE | 2019-03-26 10:09 | NUR ---
Speech Therapy Patient referred for bedside swallowing evaluation due to concerns for possible aspiration. Per chart review, patient currently resides at [facility] where staff reported concerns for possible aspiration. Within the nursing facility, patient is on thickened liquid, however patient signed a waiver to eat and drink regular food. However, after eating, patient was observed "groaning and coughing." Patient's medical history includes Parkinson's Disease, DM, and HTN. Upon arrival, patient with minimal verbal communication. She spoke with quiet, raspy voice, with short utterances that were at times unintelligibible. She was able to follow verbal commands paired with visual cues and models. Oral [facility] exam revealed lingual, labilal, and buccal skills WFL. Patient able to elicit volitional swallow which was assessed to be delayed, in addition to a weak and apparently non-productive volitional cough. Patient assessed with variety of items this date. Delayed initiation of pharyngeal swallow was observed across all consistencies. No reflexive overt s/s of penetration/aspration observed, however delayed coughing and audible breathing which was not baseline was observed following trials of tsp of water and clincian-controlled sips of nectar like liquid. No penetration/aspiration observed during pureed and regular consistency. Mildly increased mastication time observed during solid food trials, with mild lingual residue remaining. Patient presents with moderate oropharyngeal dysphagia characterized by overt s/s of penetration/aspiration occurring following trials of thin and nectar-like liquids, in addition to delayed initiation of pharyngeal swallow with mild impairments in oral skills. Patient is recommended mechanical soft diet with honey-like liquids. A modified barium swallow study is additionally recommended to further assess the anatomy and physiology of oropharyngeal swallow function. During preivous MBS dated August of 2017, patient was recommended a soft diet with thin liquids. There appears to be severe decline in oropharyngeal swallow function since most recent MBS. Follow up speech therapy is recommended to endsure safety and tolerance of recommended diet throughout a meal. Results and recommendations were shared with patient and patient's nurse. Thank you for your consultation. Carline Mathis MA CCC-[employer] MEDIA SPECIALIST
[2019-03-26 12:00] VITALS: BP 155/60
--- NOTE | 2019-03-26 12:27 | NUR ---
NOTIFIED DR VELIZ OF SPEECH EVAL RECCOMMENDATIONS. ORDERS RECIEVED.
--- NOTE | 2019-03-26 12:27 | NUR ---
Patient is LTC at [facility]. When medically stable she can return. -AISHWARYA Aldrich
[2019-03-26 16:00] VITALS: BP 173/76
--- NOTE | 2019-03-26 17:30 | NUR ---
NOTIFIED DR PUGH'S ANSWERING SERVICE OF NEW CONSULT FOR SOB AND ASPIRATION.
[2019-03-26 20:00] VITALS: BP 138/66
--- NOTE | 2019-03-26 20:59 | NUR ---
PATIENT RESTING IN BED WITH EASY AND REGULAR RESPERS ON ROOM AIR. PATIENT IS NONVERBAL, AND NO S/S OF DISTRESS NOTED AT THIS TIME. BEDSIDE GLUCOSE 179. BED IS LOW, LOCKED, ALARMED, AND CALL LIGHT IS WITHIN REACH, WILL CONTINUE TO MONITOR. SEE SHIFT ASSESSMENT.
[2019-03-27] VITALS: BP 147/60
[2019-03-27 08:00] VITALS: BP 147/67
[2019-03-27 08:38] LABS: BASO # 0.1 10*3/uL (0.0-0.1); BASO % 0.6 % (0.0-1.0); EOS # 0.1 10*3/uL (0.0-0.4); EOS % 0.7 % (1.0-4.0); HEMOGLOBIN 13.3 g/dl (12.0-16.0); LYMPH # 1.9 10*3/uL (1.3-4.4); LYMPH % 22.4 % (27.0-41.0); MEAN CELL VOLUME 98.9 fl (81.0-99.0); MEAN CORPUSCULAR HGB 30.6 pg (27.0-31.0); MEAN CORPUSCULAR HGB CONC 30.9 g/dl (33.0-37.0); MEAN PLATELET VOLUME 9.4 fl (9.6-12.3); MONO # 0.8 10*3/uL (0.1-1.0); MONO % 9.1 % (3.0-9.0); NEUT # 5.6 10*3/uL (2.3-7.9); NEUT % 66.5 % (47.0-73.0); PLATELET COUNT AUTOMATED 256 10*3/uL (130-400); RED BLOOD COUNT 4.35 10*6/uL (4.10-5.10); RED CELL DISTRI WIDTH 13.2 % (0-14.5); WHITE BLOOD COUNT 8.4 10*3/uL (4.8-10.8)
[2019-03-27 08:46] LABS: ALBUMIN 3.3 gm/dl (3.1-4.5); ALKALINE PHOSPHATASE 105 U/L (45-117); BUN 50 mg/dl (7-24); CHLORIDE 111 mmol/L (98-107); CREATININE 1.62 mg/dL (0.55-1.02); POTASSIUM 4.1 mmol/L (3.5-5.1); SGOT/AST 10 IU/L (3-35); SODIUM 144 mmol/L (136-145); TOTAL PROTEIN 7.2 gm/dL (6.4-8.2)
[2019-03-27 08:47] LABS: SGPT/ALT < 6 U/L (12-78)
[2019-03-27 16:00] VITALS: BP 131/50
[2019-03-27 20:00] VITALS: BP 160/51
[2019-03-28] VITALS: BP 154/60
[2019-03-28 07:08] LABS: CREATININE 1.66 mg/dL (0.55-1.02); POTASSIUM 4.2 mmol/L (3.5-5.1)
[2019-03-28 08:00] VITALS: BP 161/50
--- NOTE | 2019-03-28 08:36 | NUR ---
IN TO SEE PATIENT.
--- NOTE | 2019-03-28 10:26 | NUR ---
IN TO SEE PATIENT.
[2019-03-28] MEDS ORDERED: MUCINEX ER600 MG PO (11:08)
[2019-03-28] MEDS ORDERED: PREDNISONE10 MG PO (11:13)
[2019-03-28 12:00] VITALS: BP 126/59
--- NOTE | 2019-03-28 12:34 | NUR ---
ID CALLED REGARDING CRP LEVEL. AWAITING RETURN PHONE CALL.
--- NOTE | 2019-03-28 12:40 | NUR ---
NOTIFIED REGARDING MOST RECENT CRP LEVEL. NO NEW ORDERS. OKAY TO PROCEED WITH DISCHARGE.
--- NOTE | 2019-03-28 14:38 | NUR ---
AMBULANCE HERE TO TRANSPORT PATIENT BACK TO [facility].
--- NOTE | 2019-03-28 14:55 | NUR ---
REPORT GIVEN TO NURSE AT [facility].
== END 2019-03-28 14:55 | disposition other institution (70) | DRG 178 ==
LOC: ED 13:08 → 5E 16:22 → EDHOLD 16:22 → 5E 03-26 06:57
PROVIDERS: Emergency Medicine; Internal Medicine; Student in an Organized Health Care Education/Training Program; ADMIT Internal Medicine
DX: J69.0 Pneumonitis due to inhalation of food and vomit (principal); I13.0 Hypertensive heart and chronic kidney disease with heart failure and stage 1 through stage 4 chronic kidney disease, or unspecified chronic kidney disease; E44.1 Mild protein-calorie malnutrition; N18.4 Chronic kidney disease, stage 4 (severe); I50.32 Chronic diastolic (congestive) heart failure; E78.5 Hyperlipidemia, unspecified; E11.22 Type 2 diabetes mellitus with diabetic chronic kidney disease; E11.65 Type 2 diabetes mellitus with hyperglycemia; D53.9 Nutritional anemia, unspecified; E66.9 Obesity, unspecified; E87.8 Other disorders of electrolyte and fluid balance, not elsewhere classified; E86.0 Dehydration; G89.29 Other chronic pain; Z96.653 Presence of artificial knee joint, bilateral; G20 Parkinson's disease; Z68.35 Body mass index [BMI] 35.0-35.9, adult; Z79.4 Long term (current) use of insulin; Z90.710 Acquired absence of both cervix and uterus; Z87.891 Personal history of nicotine dependence; Z80.52 Family history of malignant neoplasm of bladder; Z83.3 Family history of diabetes mellitus; Z88.8 Allergy status to other drugs, medicaments and biological substances; Z88.6 Allergy status to analgesic agent; Z88.1 Allergy status to other antibiotic agents; Z91.040 Latex allergy status; Z79.82 Long term (current) use of aspirin; Z79.899 Other long term (current) drug therapy

== ENCOUNTER 2019-06-27 16:12 | Emergency (ER) | payer MEDICARE ==
[~2019-06-27] VITALS: Wt 94.3 kg
[~2019-06-27 16:12] MED LIST changes: +CYMBALTA60 MG PO; +FEROSUL325 MG PO; +HYDR25T PO; +Ipratropium Brom3 ML INH; +MIRALAX17 GM PO; +MUCINEX ER600 MG PO; +NYSTATIN1 EAC3 T; +PRESERVISION A1 EAC1 PO; +SINEMET 25-1001 EACH PO; +VITAMIN B-121000 MC2 PO; +VITAMIN D5000 UNIT PO; +ZOFRAN4 MG PO
[2019-06-27 17:51] VITALS: BP 165/72
== END 2019-06-27 18:59 | disposition home or self-care (01) ==
LOC: ED 16:12
DX: S01.81XA Laceration without foreign body of other part of head, initial encounter (principal); S09.90XA Unspecified injury of head, initial encounter; I65.29 Occlusion and stenosis of unspecified carotid artery; M47.812 Spondylosis without myelopathy or radiculopathy, cervical region; I13.0 Hypertensive heart and chronic kidney disease with heart failure and stage 1 through stage 4 chronic kidney disease, or unspecified chronic kidney disease; E11.22 Type 2 diabetes mellitus with diabetic chronic kidney disease; N18.4 Chronic kidney disease, stage 4 (severe); E78.5 Hyperlipidemia, unspecified; E66.9 Obesity, unspecified; Z90.710 Acquired absence of both cervix and uterus; Z88.8 Allergy status to other drugs, medicaments and biological substances; Z91.040 Latex allergy status; Z79.899 Other long term (current) drug therapy; Z79.82 Long term (current) use of aspirin; Z79.4 Long term (current) use of insulin; Z79.2 Long term (current) use of antibiotics; W19.XXXA Unspecified fall, initial encounter; Y93.89 Activity, other specified; Y92.129 Unspecified place in nursing home as the place of occurrence of the external cause; Y99.8 Other external cause status